=== PATIENT | female | born 1950 | race Caucasian/White ===

== ENCOUNTER 2023-02-09 16:10 | Emergency (ER) | payer MEDICARE ==
[~2023-02-09] VITALS: Ht 165.1 cm; Wt 79.0 kg
[2023-02-09 16:21] VITALS: O2SAT 98
[2023-02-09] MEDS ORDERED: LISI2.5T47 PO (16:24)
[2023-02-09] MEDS ORDERED: IBUPROFEN 400MG TABLET PO ONE (17:30)
[2023-02-09] MEDS ORDERED: ACETAMINOPHEN 325MG TABLET PO ONE (17:30)
[2023-02-09] MEDS ORDERED: TOPUD PO (18:38)
[2023-02-09] MEDS ORDERED: IBUP-2028 MT (18:38)
[2023-02-09] MEDS ORDERED: LIDO1ADH23 TP (18:39)
[2023-02-09 20:22] LABS: BASOPHILS % 0.2 % (0.0-2.0); HEMATOCRIT. 38.4 % (36.0-48.0); HEMOGLOBIN. 12.4 g/dL (12.0-16.0); LYMPHOCYTES % 11.5 % (20.0-50.0); MEAN CORPUSCULAR HEMOGLOBIN 27.2 pg (28.0-32.0); MEAN CORPUSCULAR HGB CONC 32.3 g/dL (31.0-37.0); MEAN CORPUSCULAR VOLUME 84.2 fL (81.0-99.0); MEAN PLATELET VOLUME 9.2 fl (7.4-10.4); MONOCYTES % 6.8 % (2.0-8.0); NEUTROPHILS % 81.5 % (40.0-76.0); PLATELET 304 x1000/uL (130-400); RED BLOOD CELL COUNT 4.56 mill/uL (4.2-5.4); RED CELL DISTRIBUTION WIDTH 13.9 % (11.6-14.6); WHITE BLOOD COUNT 17.7 x1000/uL (4.5-11.0)
[2023-02-09 20:33] LABS: CHLORIDE 108 mEq/L (98-107); INDEX HEMOLYSI 1 (1-3); INDEX ICTERIC 1 (1-4); INDEX LIPEMIC 1 (1-3); SODIUM 139 mEq/L (136-145)
[2023-02-09 20:40] LABS: ALANINE AMINOTRANSFERASE 19 IU/L (13-61); ASPARTATE AMINOTRANSFERASE 17 IU/L (15-37); BILIRUBIN TOTAL 0.4 mg/dL (0.1-1.0); CALCIUM 9.8 mg/dL (8.5-10.1); CARBON DIOXIDE 26 mEq/L (21-32); CREATININE 0.9 mg/dL (0.6-1.3); GLUCOSE 145 mg/dL (70-105); NT PRO B-TYPE NATRIURETIC PEP 17 pg/mL (5-125); TROPONIN I HIGH SENSITIVITY 6 ng/L (<54); UREA NITROGEN BLOOD 19 mg/dL (7-21)
[2023-02-09 22:43] VITALS: BP 126/84; PULSE 88; RESP 16; TEMP 97.8
== END 2023-02-09 22:46 | disposition home or self-care (01) ==
LOC: ER 16:10
DX: S60.412A Abrasion of right middle finger, initial encounter (principal); M25.462 Effusion, left knee; R42 Dizziness and giddiness; R06.89 Other abnormalities of breathing; E11.9 Type 2 diabetes mellitus without complications; I10 Essential (primary) hypertension; V03.99XA Pedestrian with other conveyance injured in collision with car, pick-up truck or van, unspecified whether traffic or nontraffic accident, initial encounter; Y93.89 Activity, other specified; Y92.89 Other specified places as the place of occurrence of the external cause; Y99.8 Other external cause status
CPT/HCPCS: 36415; 71045; 73502; 73562; 80053; 82962; 83880; 84484; 85025; 93005; 99285